=== PATIENT | female | born 1945 | race Caucasian/White ===

== ENCOUNTER 2016-11-07 13:51 | Emergency (ER) | payer MEDICARE ==
[~2016-11-07] VITALS: Ht 170.2 cm; Wt 111.4 kg
[2016-11-07 14:51] LABS: BLOOD UREA NITROGEN 18 mg/dL (7-18)
[2016-11-07 15:19] VITALS: BP 163/103
[2016-11-07 15:32] LABS: PATH.CAST-FLAG NOT PRESENT; SPERM-FLAG NOT PRESENT; SRC-FLAG NOT PRESENT; XTAL-FLAG NOT PRESENT; YLC-FLAG NOT PRESENT
[2016-11-07] MEDS ORDERED: ASPI-496 PO (15:49)
== END 2016-11-07 15:58 | disposition home or self-care (01) ==
LOC: ED 15:35
DX: R51 Headache (principal); R53.1 Weakness; M54.30 Sciatica, unspecified side; K58.9 Irritable bowel syndrome, unspecified; Z88.1 Allergy status to other antibiotic agents; Z88.8 Allergy status to other drugs, medicaments and biological substances
CPT/HCPCS: 36415; 70551; 80048; 81001; 82040; 85025